=== PATIENT | female | born 1960 | race Caucasian/White ===

== ENCOUNTER 2018-09-13 13:23 | Day surgery (SDC) | payer OTHER ==
--- NOTE | 2018-09-13 16:05 | NUR ---
PT SLEEPING, RESPIRATIONS EVEN AND UNLABORED. NO ACUTE DISTRESS.
--- NOTE | 2018-09-13 16:58 | NUR ---
Patient up to Ambulate independently. Gait steady. DECLINES WC OUT. Discharge instructions reviewed with patient. Patient verbalizes understanding. Copy given to patient to take home, INCLUDING S/S OF INFECTION AND WHEN TO SEEK ASSESSMENT AND TX, Patient States Post-Procedure ride home has been arranged.
[2018-10-22] MEDS ORDERED: CYCL10 PO (09:18)
[2018-10-22] MEDS ORDERED: GABA100 PO (09:21)
[2018-10-22] MEDS ORDERED: [UNRECOGNIZED DRUG - OTHER] (09:22)
[2018-10-22] MEDS ORDERED: GABA300T24 PO (09:22)
[2018-10-22] MEDS ORDERED: HYDR1TAB94 (09:22)
[2018-10-22] MEDS ORDERED: LEVSOD50 PO (09:23)
[2018-10-22] MEDS ORDERED: ROXICODONE5 MG PO (09:23)
[2018-10-22] MEDS ORDERED: STOOL SOFTENER PO (09:26)
[2018-10-22] MEDS ORDERED: ERGO400 (09:27)
[2018-10-22] MEDS ORDERED: ZUPLENZ4 MG SL (09:29)
[2018-10-22] MEDS ORDERED: DEXA4 PO (09:31)
[2018-10-22] MEDS ORDERED: Hydrocodone-Ap1 EA23 PO (09:32)
== END 2018-09-13 22:46 | disposition home or self-care (01) ==
LOC: CT 13:23
DX: C48.0 Malignant neoplasm of retroperitoneum (principal); C53.1 Malignant neoplasm of exocervix
CPT/HCPCS: 49180; 77012; 88305; 88341; 88342

== ENCOUNTER 2018-10-23 08:09 | Day surgery (SDC) | payer OTHER ==
[~2018-10-23] VITALS: Ht 162.6 cm; Wt 49.0 kg
[~2018-10-23 08:09] MED LIST: CYCL10 PO; DEXA4 PO; ERGO400; GABA100 PO; GABA300T24 PO; HYDR1TAB94; Hydrocodone-Ap1 EA23 PO; LEVSOD50 PO; ROXICODONE5 MG PO; STOOL SOFTENER PO; ZUPLENZ4 MG SL; [UNRECOGNIZED DRUG - OTHER]
--- NOTE | 2018-10-23 09:05 | NUR ---
History, Chart, Medications and Allergies reviewed before start of procedure. Patient confirms NPO status and agrees with scheduled surgery. Patient reports completing Chlorhexadine shower X2 prior to admission to hospital. Patient States Post-Procedure ride home has been arranged with her .
[2018-10-23] MEDS ORDERED: DIPH12.5EL PO (09:37)
[2018-10-23] MEDS ORDERED: CLARITIN10 MG PO (09:37)
--- NOTE | 2018-10-23 11:22 | NUR ---
REPORT FROM MELITON MELVIN. PT DENIES ANY QUESTIONS OR CONCERNS AT THIS TIME. AT BEDSIDE.
--- NOTE | 2018-10-23 11:50 | NUR ---
History, Chart, Medications and Allergies reviewed before start of procedure. Patient confirms NPO status and agrees with scheduled surgery.
--- NOTE | 2018-10-23 12:32 | NUR ---
CARE TO SOLA MELVIN
--- NOTE | 2018-10-23 12:52 | NUR ---
RECEIVED REPORT FROM SPRING FORGERNGOZI SELBY. PT STABLE, AWAKE AND TALKING TO STAFF. NO COMPLAINTS OF PAIN. MEDIPORT PLACED TO [facility]. PLACEMENT CONFIRMED PER REPORT. PT HAS MEDIPORT ACCESSED AND HAS AN APPOINTMENT AT [address] ABEL FOR CHEMO. VSS.
--- NOTE | 2018-10-23 13:25 | NUR ---
Discharge instructions reviewed with patient. Patient verbalizes understanding. Copy given to patient to take home. PT HAS RX. HAS ALL OF PT PERSONAL BELONGINGS. PT STABLE. NO COMPLAINTS. Patient States Post-Procedure ride home has been arranged. Discharged via wheelchair to private car for ride home.
== END 2018-10-23 22:37 | disposition home or self-care (01) ==
LOC: ORSCMMR 08:09 → ORD 08:45 → ORSCMMR 08:45
DX: C53.0 Malignant neoplasm of endocervix (principal); C79.51 Secondary malignant neoplasm of bone; C78.6 Secondary malignant neoplasm of retroperitoneum and peritoneum; K21.9 Gastro-esophageal reflux disease without esophagitis; Z79.899 Other long term (current) drug therapy
CPT/HCPCS: 77001; C1788; J1642; J2250; J2405; J3010; J7120

== ENCOUNTER 2019-03-17 08:57 | Emergency (ER) | payer OTHER ==
[~2019-03-17] VITALS: Ht 165.1 cm; Wt 54.0 kg
[~2019-03-17 08:57] MED LIST changes: +CLARITIN10 MG PO; +DIPH12.5EL PO
[2019-03-17] MEDS ORDERED: OXYC10TA19 (09:28)
[2019-03-17] MEDS ORDERED: Fentanyl1 EACH (09:28)
[2019-03-17] MEDS ORDERED: LIDOCAINE-PRIL1 EACH (09:28)
[2019-03-17] MEDS ORDERED: XARELTO20 MG (09:28)
[2019-03-17] MEDS ORDERED: XARELTO15 MG (09:28)
[2019-03-17 09:37] LABS: BASOPHILS ABSOLUTE AUTO 0.02 K/mm3 (0.00-0.23); BASOPHILS PERCENT AUTO 0 % (0-2); EOSINOPHILS ABSOLUTE AUTO 0.03 K/mm3 (0.00-0.68); EOSINOPHILS PERCENT AUTO 0 % (0-6); Hematocrit 26.5 % (33.0-51.0); Hemoglobin 8.4 g/dL (11.5-16.0); IMMATURE GRAN ABSOLUTE AUTO 0.31 K/mm3 (0.00-0.10); IMMATURE GRAN PERCENT AUTO 2 % (0-1); LYMPHOCYTES ABSOLUTE AUTO 0.33 K/mm3 (0.84-5.20); LYMPHOCYTES PERCENT AUTO 2 % (21-46); MONOCYTES ABSOLUTE AUTO 0.51 K/mm3 (0.16-1.47); MONOCYTES PERCENT AUTO 4 % (4-13); Mean Corpuscular HGB 31.9 pg (26.0-34.0); Mean Corpuscular HGB Conc 31.7 g/dL (31.5-36.5); Mean Corpuscular Volume 101 fL (80-100); Mean Platelet Volume 10.2 fL (9.1-12.4); NEUTROPHILS ABSOLUTE AUTO 13.56 K/mm3 (1.96-9.15); NEUTROPHILS PERCENT AUTO 92 % (41-73); NRBC ABSOLUTE 0.02 K/mm3 (0.00-0.02); NRBC Auto 0.1 /100 WBC (0.0-0.2); Platelet Count 82 K/mm3 (150-400); RDW Coefficient Variation 18.9 % (11.7-14.2); RDW Standard Deviation 69.7 fL (35.1-46.3); Red Blood Cell Count 2.63 M/mm3 (3.80-5.20); White Blood Cell Count 14.76 K/mm3 (4.00-11.30)
[2019-03-17 09:53] LABS: Alanine Aminotransfer (ALT/SGP 29 U/L (12-78); Albumin, Blood 3.1 g/dL (3.4-5.0); Albumin/Globulin Ratio 0.8 (0.8-1.8); Alk Phos 163 U/L (50-136); Anion Gap 7 mmol/L (6-16); Aspartate Aminotrans (AST/SGOT 18 U/L (12-37); Bilirubin, Total 0.3 mg/dL (0.1-1.0); Blood Urea Nitrogen 12 mg/dL (8-24); Bun/Creatinine Ratio 25.3 (12.0-20.0); CO2, Blood 27 mmol/L (21-32); Calcium, Blood 8.6 mg/dL (8.5-10.1); Chloride, Blood 97 mmol/L (98-108); Creatinine, Blood 0.48 mg/dL (0.40-1.00); Globulin, Blood 3.7 g/dL (2.2-4.0); Glomerular Filtration Rate >60 (60-); Glucose, Blood 112 mg/dL (70-99); Potassium, Blood 3.2 mmol/L (3.5-5.5); Sodium, Blood 131 mmol/L (136-145); Total Protein, Blood 6.8 g/dL (6.4-8.2)
== END 2019-03-17 11:55 | disposition home or self-care (01) ==
LOC: ER 08:57
PROVIDERS: Emergency Medicine
DX: K59.00 Constipation, unspecified (principal); Z88.1 Allergy status to other antibiotic agents; Z88.5 Allergy status to narcotic agent; Z79.899 Other long term (current) drug therapy; Z79.891 Long term (current) use of opiate analgesic
CPT/HCPCS: 74018; 80053; 83690; 85025; 96360; 99284-25; J1642; J7030

== ENCOUNTER 2020-09-29 16:49 | Observation (INO) | payer BC ==
[~2020-09-29] VITALS: Ht 165.1 cm; Wt 43.5 kg
[~2020-09-29 16:49] MED LIST changes: +Fentanyl1 EACH; +LIDOCAINE-PRIL1 EACH; +OXYC10TA19; +XARELTO15 MG; +XARELTO20 MG
[2020-09-29 18:52] LABS: BASOPHILS ABSOLUTE AUTO 0.01 K/mm3 (0.00-0.23); BASOPHILS PERCENT AUTO 0 % (0-2); EOSINOPHILS ABSOLUTE AUTO 0.05 K/mm3 (0.00-0.68); EOSINOPHILS PERCENT AUTO 0 % (0-6); IMMATURE GRAN ABSOLUTE AUTO 0.25 K/mm3 (0.00-0.10); IMMATURE GRAN PERCENT AUTO 2 % (0-1); LYMPHOCYTES ABSOLUTE AUTO 0.79 K/mm3 (0.84-5.20); LYMPHOCYTES PERCENT AUTO 6 % (21-46); MONOCYTES ABSOLUTE AUTO 0.66 K/mm3 (0.16-1.47); MONOCYTES PERCENT AUTO 5 % (4-13); Mean Corpuscular HGB 21.4 pg (26.0-34.0); Mean Corpuscular HGB Conc 27.4 g/dL (31.5-36.5); Mean Corpuscular Volume 78 fL (80-100); Mean Platelet Volume 9.5 fL (9.1-12.4); NEUTROPHILS ABSOLUTE AUTO 12.31 K/mm3 (1.96-9.15); NEUTROPHILS PERCENT AUTO 87 % (41-73); NRBC ABSOLUTE 0.15 K/mm3 (0.00-0.02); NRBC Auto 1.1 /100 WBC (0.0-0.2); Platelet Count 367 K/mm3 (150-400); RDW Coefficient Variation 19.1 % (11.7-14.2); White Blood Cell Count 14.07 K/mm3 (4.00-11.30)
[2020-09-29 18:54] LABS: Hematocrit 16.4 % (33.0-51.0); Hemoglobin 4.5 g/dL (11.5-16.0)
[2020-09-29 19:17] LABS: Albumin, Blood 3.2 g/dL (3.4-5.0); Bilirubin, Total 0.3 mg/dL (0.1-1.0); Bun/Creatinine Ratio 18.6 (12.0-20.0); Calcium, Blood 8.8 mg/dL (8.5-10.1); Creatinine, Blood 1.13 mg/dL (0.40-1.00); Globulin, Blood 3.1 g/dL (2.2-4.0); Potassium, Blood 4.1 mmol/L (3.5-5.5); Total Protein, Blood 6.3 g/dL (6.4-8.2)
[2020-09-29] MEDS ORDERED: GABA600 PO (19:53)
[2020-09-29] MEDS ORDERED: XARELTO20 MG PO (19:53)
[2020-09-29] MEDS ORDERED: Deltasone 10 mg10 MG PO (19:53)
[2020-09-29] MEDS ORDERED: LEVSOD150 PO (19:53)
[2020-09-29] MEDS ORDERED: THERA-D2000 UNIT PO (19:54)
[2020-09-29] MEDS ORDERED: ONDA8 PO (19:54)
[2020-09-29] MEDS ORDERED: OMEP20ER PO (19:54)
[2020-09-29] MEDS ORDERED: MIRALAX17 G3 PO (19:54)
[2020-09-29] MEDS ORDERED: MORP30 PO (19:55)
[2020-09-29] MEDS ORDERED: ALLERCLEAR10 MG PO (19:55)
[2020-09-29] MEDS ORDERED: SENNA LAXATIVE8.6 MG PO (19:55)
[2020-09-29] MEDS ORDERED: BUPIVACAINE 0.75% IT (20:02)
[2020-09-29] MEDS ORDERED: HYDROMORPHO IT (20:05)
[2020-09-29 20:54] LABS: Percent Saturation 2.2 % (15.0-50.0)
[2020-09-29 21:32] LABS: Thyroid Stimulating Hormone 0.518 uIU/mL (0.360-4.800)
[2020-09-30 03:28] LABS: BASOPHILS ABSOLUTE AUTO 0.01 K/mm3 (0.00-0.23); BASOPHILS PERCENT AUTO 0 % (0-2); EOSINOPHILS PERCENT AUTO 0 % (0-6); Hematocrit 27.8 % (33.0-51.0); Hemoglobin 8.7 g/dL (11.5-16.0); IMMATURE GRAN ABSOLUTE AUTO 0.31 K/mm3 (0.00-0.10); IMMATURE GRAN PERCENT AUTO 3 % (0-1); LYMPHOCYTES ABSOLUTE AUTO 0.48 K/mm3 (0.84-5.20); LYMPHOCYTES PERCENT AUTO 4 % (21-46); MONOCYTES ABSOLUTE AUTO 0.37 K/mm3 (0.16-1.47); MONOCYTES PERCENT AUTO 3 % (4-13); Mean Corpuscular HGB 25.4 pg (26.0-34.0); Mean Corpuscular HGB Conc 31.3 g/dL (31.5-36.5); Mean Corpuscular Volume 81 fL (80-100); NEUTROPHILS ABSOLUTE AUTO 11.29 K/mm3 (1.96-9.15); NEUTROPHILS PERCENT AUTO 91 % (41-73); NRBC ABSOLUTE 0.14 K/mm3 (0.00-0.02); NRBC Auto 1.1 /100 WBC (0.0-0.2); Platelet Count 246 K/mm3 (150-400); RDW Coefficient Variation 15.9 % (11.7-14.2); RDW Standard Deviation 47.2 fL (35.1-46.3); Red Blood Cell Count 3.43 M/mm3 (3.80-5.20); White Blood Cell Count 12.46 K/mm3 (4.00-11.30)
[2020-09-30 03:42] LABS: Anion Gap 5 mmol/L (6-16); Blood Urea Nitrogen 18 mg/dL (8-24); Bun/Creatinine Ratio 29.6 (12.0-20.0); CO2, Blood 29 mmol/L (21-32); Calcium, Blood 8.4 mg/dL (8.5-10.1); Chloride, Blood 98 mmol/L (98-108); Creatinine, Blood 0.61 mg/dL (0.40-1.00); Glomerular Filtration Rate >60 (60-); Glucose, Blood 150 mg/dL (70-99); Potassium, Blood 4.1 mmol/L (3.5-5.5); Sodium, Blood 132 mmol/L (136-145)
[2020-09-30 03:48] LABS: BAND PERCENT MAN 3 % (0-8); BASOPHILS PERCENT MAN 0 % (0-2); EOSINOPHILS PERCENT MAN 0 % (0-6); LYMPHOCYTES ABSOLUTE MAN 0.37 K/mm3 (0.84-5.20); LYMPHOCYTES PERCENT MAN 3 % (21-46); MONOCYTES PERCENT MAN 0 % (4-13); NEUTROPHILS ABSOLUTE MAN 12.08 K/mm3 (1.96-9.15); SEG NEUTROPHILS PERCENT MAN 94 % (41-73); TOTAL CELLS COUNTED 35
--- NOTE | 2020-09-30 05:32 | NUR ---
SHIFT SUMMARY PT ARRIVED FROM ER VIA STRETCHER AND SELF TRANSFERED TO BED APPROXIMATELY @ 20; PT A&O X 4; VSS; DENIES CHEST PAIN; NSR TO SINUS TACH NOTED ON TELE; O2 SATS >93 ON RA; C/O SOB W/ AMBULATION; 1 UNIT PRBC INFUSING UPON ARRIVAL IN MEDIPORT IN R CHEST WALL; MEDIPORT ACCESS PER ER; ADDITIONAL UNIT GIVEN; HGB INCREASED TO 8.7 THIS AM; PT AMBULATES TO BATHROOM W/ 1 PERSON ASSIST, W/ WEAKNESS; HX OF CERVICAL CA W/ METS TO SPINE; PT STATES SHE HAS A PAIN PUMP IN LOWER L BACK PRE SET DILAUDID; C/O R HIP AND LEG PAIN DUE TO METS; CALL LIGHT IN REACH; BED IN LOWEST POSITION; WILL CONTINUE TO MONITOR UNTIL HAND OFF TO DAY SHIFT RN.
--- NOTE | 2020-09-30 08:51 | NUR ---
PATIENT ALLOWED THIS STUDENT RN TO PROVIDE CARE ON 09/30/2020
[2020-09-30 09:40] LABS: Hematocrit 27.1 % (33.0-51.0); Hemoglobin 8.7 g/dL (11.5-16.0)
[2020-09-30] MEDS ORDERED: ACET325 PO (11:05)
[2020-09-30] MEDS ORDERED: FERROUS GLUCON324 M2 PO (11:06)
--- NOTE | 2020-09-30 12:29 | NUR ---
DISCHARGE SUMMARY PT A&Ox4; CALM AND COOPERATIVE WITH CARE. PT REPORTS PAIN AT BASELINE, HAD PAIN PUMUP AND USING ICE/HEAT THERAPY FOR PAIN RELEIFE. PT DENIES SOB, NAUSEA AND DIZZINESS. VSS. NO OTHER ACUTE CHANGES NOTED DURING SHIFT. PT EDUCATED ON DISCHARGE INSTRUCTIONS, FOLLOW UP APPOOINTMNETS AND MEDICATIONS. THERAPY TECH IN TO EDUCATE PT REGARDING NEW MEDICATIONS. CAPACITY ANALYST COMPLETED DISCHARGE AND THIS RN REVIEWED AND APPROVED. PT LEFT ROOM AT 1214 VIA WHEELCHAIR.
== END 2020-09-30 12:14 | disposition home or self-care (01) ==
LOC: ER 16:49 → PCU 16:50
PROVIDERS: Physician Assistant; ADMIT Family Medicine
DX: D64.9 Anemia, unspecified (principal); D72.829 Elevated white blood cell count, unspecified; E87.1 Hypo-osmolality and hyponatremia; N17.9 Acute kidney failure, unspecified; C53.9 Malignant neoplasm of cervix uteri, unspecified; C78.02 Secondary malignant neoplasm of left lung; C78.01 Secondary malignant neoplasm of right lung; C79.51 Secondary malignant neoplasm of bone; R64 Cachexia; K21.9 Gastro-esophageal reflux disease without esophagitis; E03.9 Hypothyroidism, unspecified; Z79.01 Long term (current) use of anticoagulants; Z79.899 Other long term (current) drug therapy; Z96.89 Presence of other specified functional implants; Z88.1 Allergy status to other antibiotic agents; Z88.5 Allergy status to narcotic agent; Z23 Encounter for immunization; Z68.42 Body mass index [BMI] 45.0-49.9, adult
CPT/HCPCS: 36430; 71045; 80048; 80053; 82607; 82728; 82746; 83540; 83550; 84443; 85014; 85018; 85025; 86850; 86900; 86901; 86923; 93005; 93010; 96374; 99285-25; A9270; G0378; J1642; J2916; J7030; J7040; J7512; P9016

== ENCOUNTER 2020-10-20 00:35 | Day surgery (SDC) | payer BC ==
[~2020-10-20 00:35] MED LIST changes: +ACET325 PO; +ALLERCLEAR10 MG PO; +BUPIVACAINE 0.75% IT; +Deltasone 10 mg10 MG PO; +FERROUS GLUCON324 M2 PO; +GABA600 PO; +HYDROMORPHO IT; +LEVSOD150 PO; +MIRALAX17 G3 PO; +MORP30 PO; +OMEP20ER PO; +ONDA8 PO; +SENNA LAXATIVE8.6 MG PO; +THERA-D2000 UNIT PO; +XARELTO20 MG PO
--- NOTE | 2020-10-20 07:58 | NUR ---
BIOX OF 86% ON RA. O2 AT 2L PER N/C. O2 100&. PT VERY SOB AND PALE WITH ANY MOVEMENT.
--- NOTE | 2020-10-20 09:15 | NUR ---
PT RESTING QUIETLY. BIOX 100% ON 2L NC. O2 DECREASED TO 1L NC. BIOX 96% IN ROOM.
--- NOTE | 2020-10-20 12:01 | NUR ---
PT AWAKE AND TALKING TO , STATES SHE IS GROGGY. BIOX 95-100% ON RA. PT STATES SHE FEELS STEADY ON HER FEET. PT HELPED TO WHEEL CHAIR WITH HELP OF .
== END 2020-10-20 11:45 | disposition home or self-care (01) ==
LOC: ATC 00:35
DX: C53.1 Malignant neoplasm of exocervix (principal); G89.3 Neoplasm related pain (acute) (chronic); C77.1 Secondary and unspecified malignant neoplasm of intrathoracic lymph nodes; C77.0 Secondary and unspecified malignant neoplasm of lymph nodes of head, face and neck; C78.00 Secondary malignant neoplasm of unspecified lung; C79.51 Secondary malignant neoplasm of bone; Z92.21 Personal history of antineoplastic chemotherapy; Z92.3 Personal history of irradiation; Z86.718 Personal history of other venous thrombosis and embolism; Z86.711 Personal history of pulmonary embolism; Z97.8 Presence of other specified devices; Z79.01 Long term (current) use of anticoagulants; Z88.6 Allergy status to analgesic agent; Z88.1 Allergy status to other antibiotic agents
CPT/HCPCS: 36415; 36430; 86850; 86900; 86901; 86923; A9270; J1642; J7050; P9016

== ENCOUNTER 2020-11-24 07:25 | Day surgery (SDC) | payer BC ==
[2020-11-24] MEDS ORDERED: MORPHINE IT (09:10)
== END 2020-11-24 12:15 | disposition home or self-care (01) ==
LOC: ATC 07:25
DX: C53.0 Malignant neoplasm of endocervix (principal); C79.51 Secondary malignant neoplasm of bone; C77.5 Secondary and unspecified malignant neoplasm of intrapelvic lymph nodes; C77.1 Secondary and unspecified malignant neoplasm of intrathoracic lymph nodes; C77.0 Secondary and unspecified malignant neoplasm of lymph nodes of head, face and neck
CPT/HCPCS: 36430; 86850; 86900; 86901; 86923; A9270; J1642; J7050; P9016

== ENCOUNTER 2020-12-12 12:40 | Inpatient (IN) | payer BC ==
[~2020-12-12] VITALS: Ht 165.1 cm; Wt 46.0 kg
[~2020-12-12 12:40] MED LIST changes: +MORPHINE IT
[2020-12-12 14:42] LABS: BASOPHILS ABSOLUTE AUTO 0.01 K/mm3 (0.00-0.23); BASOPHILS PERCENT AUTO 0 % (0-2); EOSINOPHILS PERCENT AUTO 0 % (0-6); IMMATURE GRAN ABSOLUTE AUTO 0.09 K/mm3 (0.00-0.10); IMMATURE GRAN PERCENT AUTO 1 % (0-1); LYMPHOCYTES ABSOLUTE AUTO 0.29 K/mm3 (0.84-5.20); LYMPHOCYTES PERCENT AUTO 2 % (21-46); MONOCYTES ABSOLUTE AUTO 0.38 K/mm3 (0.16-1.47); MONOCYTES PERCENT AUTO 3 % (4-13); Mean Corpuscular HGB 27.1 pg (26.0-34.0); Mean Corpuscular HGB Conc 30.8 g/dL (31.5-36.5); Mean Corpuscular Volume 88 fL (80-100); Mean Platelet Volume 9.5 fL (9.1-12.4); NEUTROPHILS ABSOLUTE AUTO 11.21 K/mm3 (1.96-9.15); NEUTROPHILS PERCENT AUTO 94 % (41-73); NRBC ABSOLUTE 0.03 K/mm3 (0.00-0.02); NRBC Auto 0.3 /100 WBC (0.0-0.2); Platelet Count 293 K/mm3 (150-400); RDW Coefficient Variation 17.2 % (11.7-14.2); RDW Standard Deviation 54.5 fL (35.1-46.3); Red Blood Cell Count 1.33 M/mm3 (3.80-5.20); White Blood Cell Count 11.98 K/mm3 (4.00-11.30)
[2020-12-12 14:49] LABS: Hematocrit 11.7 % (33.0-51.0)
[2020-12-12 14:50] LABS: Alanine Aminotransfer (ALT/SGP 14 U/L (12-78); Albumin, Blood 2.2 g/dL (3.4-5.0); Albumin/Globulin Ratio 0.8 (0.8-1.8); Alk Phos 56 U/L (50-136); Anion Gap 6 mmol/L (6-16); Aspartate Aminotrans (AST/SGOT 9 U/L (12-37); Bilirubin, Total 0.3 mg/dL (0.1-1.0); Blood Urea Nitrogen 13 mg/dL (8-24); Bun/Creatinine Ratio 21.1 (12.0-20.0); CO2, Blood 28 mmol/L (21-32); Calcium, Blood 7.9 mg/dL (8.5-10.1); Chloride, Blood 95 mmol/L (98-108); Creatinine, Blood 0.62 mg/dL (0.40-1.00); Globulin, Blood 2.7 g/dL (2.2-4.0); Glomerular Filtration Rate >60 (60-); Glucose, Blood 133 mg/dL (70-99); Potassium, Blood 4.3 mmol/L (3.5-5.5); Sodium, Blood 129 mmol/L (136-145); Total Protein, Blood 4.9 g/dL (6.4-8.2)
[2020-12-12 14:53] LABS: Hemoglobin 3.6 g/dL (11.5-16.0)
[2020-12-12] MEDS ORDERED: LORAZEPAM0.5 MG PO (16:04)
--- NOTE | 2020-12-12 20:10 | NUR ---
ASSUMED CARE PT CAME INTO UNIT AT [facility] 2009 VIA STRETCHER ACCOMPANIED BY SIGNIFICANT OTHER. PT TOLERATED WELL BEING TRANSFERED TO BED. VITALS ARE STABLE; 3L NC WITH SATS OF >92%. PT STATES FEELLING VERY WEAK AND PAINFUL. PAIN PUMP AT LEFT LOWER BACK.
[2020-12-12 23:02] LABS: Influenza A, PCR NEGATIVE (NEGATIVE); Influenza B, PCR NEGATIVE (NEGATIVE); Resp Syncytial Virus, PCR NEGATIVE (NEGATIVE); SARS-Cov-2 (COVID-19) PCR, MMC NEGATIVE (NEGATIVE)
--- NOTE | 2020-12-13 05:47 | NUR ---
CALLED DR CRAMER REGARDING ACCESS TO DRAW BLOOD FROM [facility]. ORDER WAS APPROVED.
[2020-12-13 06:10] LABS: BASOPHILS ABSOLUTE AUTO 0.02 K/mm3 (0.00-0.23); BASOPHILS PERCENT AUTO 0 % (0-2); EOSINOPHILS ABSOLUTE AUTO 0.03 K/mm3 (0.00-0.68); EOSINOPHILS PERCENT AUTO 0 % (0-6); Hematocrit 28.5 % (33.0-51.0); Hemoglobin 9.7 g/dL (11.5-16.0); IMMATURE GRAN ABSOLUTE AUTO 0.06 K/mm3 (0.00-0.10); IMMATURE GRAN PERCENT AUTO 1 % (0-1); LYMPHOCYTES ABSOLUTE AUTO 0.55 K/mm3 (0.84-5.20); LYMPHOCYTES PERCENT AUTO 6 % (21-46); MONOCYTES ABSOLUTE AUTO 0.48 K/mm3 (0.16-1.47); MONOCYTES PERCENT AUTO 5 % (4-13); Mean Corpuscular HGB 28.8 pg (26.0-34.0); Mean Corpuscular Volume 85 fL (80-100); Mean Platelet Volume 8.9 fL (9.1-12.4); NEUTROPHILS ABSOLUTE AUTO 7.96 K/mm3 (1.96-9.15); NEUTROPHILS PERCENT AUTO 88 % (41-73); NRBC ABSOLUTE 0.02 K/mm3 (0.00-0.02); NRBC Auto 0.2 /100 WBC (0.0-0.2); Platelet Count 218 K/mm3 (150-400); RDW Coefficient Variation 14.8 % (11.7-14.2); RDW Standard Deviation 44.2 fL (35.1-46.3); Red Blood Cell Count 3.37 M/mm3 (3.80-5.20)
--- NOTE | 2020-12-13 06:18 | NUR ---
SHIFT SUMMARY PT IS ALERT AND ORIENTED. VITALS ARE STABLE. PT IS ON 2L NC WITH SATS >92%. TELE READING OF SINUS TACH. 2 UNITS OF RBC'S GIVEN AND 1 UNIT GIVEN IN THE ED. PT'S HGB HAS INCREASED FROM 3.6 TO 9.7. PT HAS ACCESSED MEDIPORT IN THE RIGHT UPPER CHEST AND HAS ORDER FOR LAB DRAWS IN PLACE; INFUSING NS. PT IS WEAK THROUGHTOUT AND HAS REPORTED PAIN FROM 9-10/10 WHICH SHE REPORTS THAT IS HER BASELINE. THERE IS A PAIN PUMP AT THE LEFT LOWER BACK. HAVE BEEN MEDICATING PAIN PER EMAR AND USING ICE THERAPY. USES CALL LIGHT APPROPRIATLY AND IS WITHIN REACH.
[2020-12-13 06:25] LABS: Anion Gap 6 mmol/L (6-16); Blood Urea Nitrogen 10 mg/dL (8-24); Bun/Creatinine Ratio 14.6 (12.0-20.0); CO2, Blood 29 mmol/L (21-32); Calcium, Blood 8.2 mg/dL (8.5-10.1); Chloride, Blood 98 mmol/L (98-108); Creatinine, Blood 0.68 mg/dL (0.40-1.00); Glomerular Filtration Rate >60 (60-); Glucose, Blood 83 mg/dL (70-99); Potassium, Blood 3.6 mmol/L (3.5-5.5); Sodium, Blood 133 mmol/L (136-145)
--- NOTE | 2020-12-13 13:15 | NUR ---
TRANSFER TO MEDICAL FLOOR. PT WAS TRANSFERRED TO MEDICAL FLOOR AT APPROXIMATELY 1240 VIA CART. PT WAS TRANSFERRED WITH ALL PERSONAL BELONGINGS. PT WAS TRANSFERRED ON 2L OF O2 VIA NC, AND NS RUNNING AT 25mL/HR TO THE [facility] MEDIPORT. VS STABLE AT THE TIME OF TRANSFER. REPORT WAS GIVEN TO NGOZI BAKER ON MEDICAL FLOOR PRIOR TO THE PT BEING TRANSFERRED TO [facility] 331
--- NOTE | 2020-12-13 18:20 | NUR ---
PT RESTING IN BED AFTER DINNER AND PM MEDICATION, ALERT AND ORIENTED X4. PT C/O PAIN OF 05/21 AND HAS BEEN TREATED PER EMAR WITH AN INCREASED ONE TIME DOSE OF MSIR PER MD ORDERS. FAMILY HAS BEEN AT BEDSIDE THIS SHIFT. PT PORT/LINE IS INF AND WNL. BED IN LOW POSITION AND CALL LIGHT WITHIN REACH. STAFF WILL CONT. TO MONITOR.
--- NOTE | 2020-12-13 19:10 | NUR ---
ASSUMED CARE RECEIVED REPORT FROM NGOZI GUERRIER. PT RESTING IN BED, ASSISTED UP TO BSC WITH 1 PERSON ASSIST. TOLERATED WELL. REPORTS WEAKNESS TO RLE, STATES WNL FOR HER. IVF INFUSING TKO IN MEDIPORT. CALL LIGHT AND WIPES LEFT WITHIN REACH OF PT.
[2020-12-14 05:41] LABS: Hematocrit 30.4 % (33.0-51.0); Mean Corpuscular HGB 28.2 pg (26.0-34.0); Mean Corpuscular HGB Conc 32.9 g/dL (31.5-36.5); Mean Corpuscular Volume 86 fL (80-100); Mean Platelet Volume 8.8 fL (9.1-12.4); Platelet Count 216 K/mm3 (150-400); RDW Coefficient Variation 16.1 % (11.7-14.2); RDW Standard Deviation 49.3 fL (35.1-46.3); Red Blood Cell Count 3.54 M/mm3 (3.80-5.20); White Blood Cell Count 7.95 K/mm3 (4.00-11.30)
--- NOTE | 2020-12-14 06:30 | NUR ---
MEDICAL TECHNOLOGIST BLOOD BANK SUMMARY PT RESTING, IN NO ACUTE DISTRESS. VS REVIEWED,WNL. SLEPT THROUGH MUCH OF THE NIGHT. PAIN MANAGED WITH MEDS PER EMAR. COLONOSCOPY PREP STARTED AT 0530, PT APPEARS TO BE TOLERATING WELL SO FAR. GABAPENTIN TIMING CHANGED PER PT'S HOME REGIMEN. WILL MEDICATE ORDERED. WILL CONTINUE TO PROVIDE CARE UNTIL REPORT GIVEN TO ONCOMING RN.
[2020-12-14 11:41] LABS: Hematocrit 30.8 % (33.0-51.0)
--- NOTE | 2020-12-14 15:45 | NUR ---
PT TAKEN TO THE DAY SURGERY FOR UPPER AND LOWER SCOPE, PT WAS A/OX3 AT THE TIME OF TRANSFER
--- NOTE | 2020-12-14 18:35 | NUR ---
Met with pt's while she is undergoing a colonoscopy. She's currently having bleeding from unknown source, thus the colonoscopy. Joselo says pt has been in 7-8/10 pain for the past year, r/t stage 4 cervical cancer. Joselo states she has tried "every kind of pain medicine imaginable", with very little relief. She currently has a pain pump, as well as taking oral medication with little benefit. She has tried medical marijuana in the past, and that isn't working either. Joselo states both he and his are thinking about comfort care, or hospice. He also reports they have completed the with [facility]--all that is left is to obtain the medication. He requests a Palliative Care card, will leave one with him.
--- NOTE | 2020-12-14 19:19 | NUR ---
DR. FU IN ROOM TO SEE THE PATIENT.
--- NOTE | 2020-12-14 20:13 | NUR ---
PATIENT IS REQUESTED TO GO HOME DR. RAAD MILLER INFORMED THEM THAT SHE HAS RADIATION DAMAGE THEREFORE THERE IS NOT MUCH WE CAN DO FOR HER. SHE HAS CHRONIC CANCER PAIN THAT IS THROUGHOUT HER BACK AND DOWN HER HIPS AND IS NOT ABLE TO STAY IN THE BED. WILL CALL THE HOSPITALIST.
--- NOTE | 2020-12-14 20:42 | NUR ---
SPOKE TO DR. FRANCE IN REGARDS TO PATIENT REQUESTING TO BE DISCHARGED HOME. HE DOES NOT FEEL COMFORTABLE WITH GIVING A DISCHARGE ORDER BUT DID GIVE ORDER TO [facility] MEDIPORT IF NEEDED. RETURNED TO ROOM AND INFORMED KIRSTEN AND HER WHAT DR. FRANCE SAID. KIRSTEN SAID SHE DOES NOT WANT TO STAY. OFFERED AMA PAPERWORK AND INFORMED THEM THAT SOMETIMES INSURANCE WILL NOT PAY FOR THE VISIT IF YOU GO AMA. THEY STILL REQUEST TO LEAVE. STOPPED FLUIDS, ADMINISTERED HEPARIN FOR LOCK. DEACCESSED PORT AND COVERED WITH BANDAID. INFORMED CHARGE NURSE AND BELEN AT DESK OF AMA. PATIENT LEFT WITH IN WHEELCHAIR. WAS UNABLE TO DO A COMPLETE ASSESSMENT ON THE PATIENT.
--- NOTE | 2020-12-16 07:01 | NUR ---
12/16/20 0701 John Galvan PATIENT DETERMINED TO BE ASA APPROPRIATE FOR PROPOFOL SEDATION PRIOR TO START OF PROCEDURE BY DR. SHANKAR Bite Block Placed 3-LEAD EKG REVIEWED WITH PHYSICIAN PRIOR TO START OF PROCEDURE. History, Chart, Medications and Allergies reviewed before start of procedure.MONITOR INTACT WITH CONTINUOUS PULSE OXIMETRY AND INTERMITTENT BP.
== END 2020-12-14 20:42 | disposition left against medical advice (07) | DRG 378 ==
LOC: ER 12:40 → MEDS 18:40 → PCU 18:40 → MEDS 12-13 13:01
PROVIDERS: Emergency Medicine; Internal Medicine; Internal Medicine Gastroenterology; Nurse Practitioner Acute Care; ADMIT Internal Medicine
PROC: 30233N1 Transfusion of Nonautologous Red Blood Cells into Peripheral Vein, Percutaneous Approach (ICD-10-PCS; principal; 2020-12-12)
PROC: 0DB58ZX Excision of Esophagus, Via Natural or Artificial Opening Endoscopic, Diagnostic (ICD-10-PCS; 2020-12-14)
PROC: 0DJD8ZZ Inspection of Lower Intestinal Tract, Via Natural or Artificial Opening Endoscopic (ICD-10-PCS; 2020-12-14)
PROC: 0DB98ZX Excision of Duodenum, Via Natural or Artificial Opening Endoscopic, Diagnostic (ICD-10-PCS; 2020-12-14 16:00)
PROC: 0DB68ZX Excision of Stomach, Via Natural or Artificial Opening Endoscopic, Diagnostic (ICD-10-PCS; 2020-12-14 16:00)
DX: K92.1 Melena (principal); K52.0 Gastroenteritis and colitis due to radiation; C78.00 Secondary malignant neoplasm of unspecified lung; C79.51 Secondary malignant neoplasm of bone; D62 Acute posthemorrhagic anemia; F11.20 Opioid dependence, uncomplicated; Z66 Do not resuscitate; Z20.822 Contact with and (suspected) exposure to COVID-19; R13.10 Dysphagia, unspecified; C53.9 Malignant neoplasm of cervix uteri, unspecified; D50.9 Iron deficiency anemia, unspecified; G89.4 Chronic pain syndrome; E03.9 Hypothyroidism, unspecified; K21.9 Gastro-esophageal reflux disease without esophagitis; Z88.1 Allergy status to other antibiotic agents; Z88.2 Allergy status to sulfonamides; Z79.01 Long term (current) use of anticoagulants; Z79.899 Other long term (current) drug therapy; Z90.89 Acquired absence of other organs; Z98.890 Other specified postprocedural states; Z79.52 Long term (current) use of systemic steroids; Z86.718 Personal history of other venous thrombosis and embolism; Z86.711 Personal history of pulmonary embolism; Z92.21 Personal history of antineoplastic chemotherapy; Z90.49 Acquired absence of other specified parts of digestive tract; Z88.5 Allergy status to narcotic agent
CPT/HCPCS: 0241U; 36430; 80048; 80053; 85014; 85018; 85025; 85027; 86850; 86900; 86901; 86923; 88305; 88342; 93005; 93010; 93971; 99285-25; A9270; J1642; J2250; J2405; J2704; J2765; J7030; J7050; P9016